=== PATIENT | female | born 1985 | race African-American/Black ===

== ENCOUNTER 2017-02-10 07:14 | Emergency (ER) | payer MEDICAID ==
[2017-02-10] MEDS ORDERED: METHYLPREDNISOLONE INJ 125 MG/2 ML SDV IM ONE (07:52)
--- NOTE | 2017-02-10 07:52 | ER Document Report ---
ED Neck/Back Problem - General Mode of Arrival: Ambulatory Information source: Patient TRAVEL OUTSIDE OF THE [place] IN LAST 30 DAYS: No - General Chief Complaint: Back Pain Stated Complaint: BACK PAIN Time Seen by Provider: 02/10/17 07:36 Notes: Patient is a 31-year-old -Citizen Of [place] female with a history of low back pain who presents to the ER today for low back pain, worse on the right side. Patient states that her mood. She denies any recent injury, numbness, tingling , difficulty voiding or having a bowel movement. (ILA GAINES) - Related Data Allergies/Adverse Reactions: No Known Allergies Allergy (Unverified 02/10/17 07:20) Past Medical History - General Information source: Patient - Social History Smoking Status: Unknown if Ever Smoked Family History: Arthritis, CAD, CVA, DM, Hyperlipidemia, Hypertension. denies: COPD, Malignancy, Thyroid Disfunction Patient has suicidal ideation: No Patient has homicidal ideation: No Neurological Medical History: Reports: Hx Migraine Renal/ Medical History: Denies: Hx Peritoneal Dialysis Psychiatric Medical History: Reports: Hx Anxiety Past Surgical History: Reports: Hx Cardiac Surgery - Mitral valve replacement and mitral valve repair then replacement, Hx Section, Hx Gynecologic Surgery - Left oophorectomy due to torsion, Hx Hysterectomy - Immunizations Hx Diphtheria, Pertussis, Tetanus Vaccination: No Review of Systems - Review of Systems Constitutional: No symptoms reported EENT: No symptoms reported Cardiovascular: No symptoms reported Respiratory: No symptoms reported Gastrointestinal: No symptoms reported Genitourinary: No symptoms reported Female Genitourinary: No symptoms reported Musculoskeletal: See HPI Skin: No symptoms reported Hematologic/Lymphatic: No symptoms reported Neurological/Psychological: No symptoms reported Physical Exam - Vital signs Vitals: Temp Pulse Resp BP Pulse Ox 97.9 F 113 H 16 130/94 H 99 02/10/17 07:18 02/10/17 07:18 02/10/17 07:18 02/10/17 07:18 02/10/17 07:18 - Notes Notes: PHYSICAL EXAMINATION: GENERAL: uncomfortable, in position, but in no acute distress. HEAD: Atraumatic, normocephalic. EYES: Pupils equal round and reactive to light, extraocular movements intact, sclera anicteric, conjunctiva are normal. NECK: Normal range of motion, supple without lymphadenopathy LUNGS: CTAB and equal. No wheezes rales or rhonchi. HEART: Regular rate and rhythm without murmurs ABDOMEN: Soft, no tenderness. No guarding, no rebound BACK: thoracic and lumbar vertebral tenderness, limited ROM , spasm felt in right lumbar area GI/: no CVA tenderness EXTREMITIES: Normal range of motion, no pitting edema. No cyanosis. NEUROLOGICAL: Cranial nerves grossly intact. Normal sensory/motor exams. PSYCH: Normal mood, normal affect. SKIN: Warm, Dry, normal turgor, no rashes or lesions noted (ILA GAINES) Course - Re-evaluation Re-evalutation: 02/10/17 09:13 That x-rays, even a CAT scan of her back for the same back pain. She states it comes and goes and she thinks it is because she is "large chested." (ILA GAINES) - Vital Signs Vital signs: Temp Pulse Resp BP Pulse Ox 98.4 F 99 16 124/85 100 02/10/17 09:36 02/10/17 09:36 02/10/17 07:18 02/10/17 09:36 02/10/17 09:36 Discharge - Discharge Clinical Impression: Low back pain Qualifiers: Chronicity: acute Back pain laterality: right Sciatica presence: without sciatica Qualified Code(s): M54.5 - Low back pain Condition: Stable Disposition: HOME, SELF-CARE Instructions: Warm Packs ([facility]), Ice Packs ([facility]), Low Back Pain ([facility]), Oral Narcotic Medication ([facility]) Additional Instructions: Return immediately for any new or worsening symptoms. Follow up with primary care provider, call tomorrow to make followup appointment. Prescriptions: Cyclobenzaprine HCl [Flexeril 10 mg Tablet] 10 mg PO TIDP PRN #15 tab PRN Reason: Oxycodone HCl/Acetaminophen [Percocet 5-325 mg Tablet] 1 tab PO ASDIR PRN #10 tab PRN Reason: Prednisone 60 mg PO DAILY #15 tablet
[2017-02-10] MEDS ORDERED: CYCLOBENZAPRINE HCL 10 MG TABLET PO ONE (07:53)
[2017-02-10] MEDS ORDERED: OXYCODONE-ACETAMINOPHEN 5-325 MG TABLET PO ONE (07:53)
[2017-02-10] MEDS ORDERED: IBUPROFEN 800 MG TABLET PO ONE (08:27)
[2017-02-10] MEDS ORDERED: HYDROCODONE/ACETAMINOPHEN 5-325 MG 6 TAB/DSPK PO PRN (09:17)
[2017-02-10 10:07] VITALS: BP 124/85
== END 2017-02-10 09:59 | disposition home or self-care (01) ==
LOC: ER 07:14
DX: M54.5 Low back pain (principal); M54.9 Dorsalgia, unspecified
CPT/HCPCS: 99283; 96374; J2930

== ENCOUNTER 2017-03-10 00:36 | Emergency (ER) | payer MEDICAID ==
--- NOTE | 2017-03-10 03:37 | ER Document Report ---
ED General - General Chief Complaint: Dizziness, not sleeping Stated Complaint: PREVIOUS ALTERED STATE OF CONCIOUSNESS Time Seen by Provider: 03/10/17 03:17 Notes: Patient is a 31-year-old female comes emergency department for chief complaint of an episode last Thursday where she felt like she could not speak what she wanted to say, her words were garbled, she felt suddenly tingling in all her extremities, and she felt lightheaded with blurry vision. She states this lasted for about 15 minutes. She admits she had not slept for about 48 hours when the episode occurred. She denies any current deficits, she denies any other symptoms. 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 She states she was previously under the care of cardiology Dr. Miller on Coumadin 6 mg daily, she states that she was discharged from the service for bills that she could not pay, she was then seen by Dr. Squires and discharged for missing appointments. She was most recently seen at [facility] and was referred to [facility] for management after she got a script for 1 mg of coumadin daily. She is now out of coumadin. She currently has no insurance, states she lost her job 3 weeks ago. TRAVEL OUTSIDE OF THE [place] IN LAST 30 DAYS: No - Related Data Allergies/Adverse Reactions: No Known Allergies Allergy (Unverified 02/10/17 07:20) Past Medical History - General Information source: Patient - Social History Smoking Status: Never Smoker Lives with: Friend Family History: Arthritis, CAD, CVA, DM, Hyperlipidemia, Hypertension. denies: COPD, Malignancy, Thyroid Disfunction - Past Medical History Cardiac Medical History: Reports: Other - Mitral regurg Neurological Medical History: Reports: Hx Migraine Renal/ Medical History: Denies: Hx Peritoneal Dialysis Psychiatric Medical History: Reports: Hx Anxiety Past Surgical History: Reports: Hx Cardiac Surgery - Mitral valve replacement and mitral valve repair then replacement, Hx Section, Hx Gynecologic Surgery - Left oophorectomy due to torsion, Hx Hysterectomy - Immunizations Hx Diphtheria, Pertussis, Tetanus Vaccination: No Review of Systems - Review of Systems Constitutional: No symptoms reported EENT: No symptoms reported Cardiovascular: See HPI Respiratory: No symptoms reported Gastrointestinal: No symptoms reported Genitourinary: No symptoms reported Female Genitourinary: No symptoms reported Musculoskeletal: No symptoms reported Skin: No symptoms reported Hematologic/Lymphatic: No symptoms reported Neurological/Psychological: See HPI Physical Exam - Vital signs Vitals: Temp Pulse Resp BP Pulse Ox 98.1 F 95 17 133/84 H 99 03/10/17 00:56 03/10/17 00:56 03/10/17 00:56 03/10/17 00:56 03/10/17 00:56 Interpretation: Normal - General General appearance: Appears well, Alert - HEENT Head: Normocephalic, Atraumatic Eyes: Normal Pupils: PERRL - Respiratory Respiratory status: No respiratory distress Chest status: Nontender Breath sounds: Normal Chest palpation: Normal - Cardiovascular Rhythm: Regular. No: Tachycardia Heart sounds: Normal auscultation, S1 appreciated, S2 appreciated Murmur: No - Abdominal Inspection: Normal Distension: No distension Bowel sounds: Normal Tenderness: Nontender Organomegaly: No organomegaly - Back Back: Normal, Nontender - Extremities General upper extremity: Normal inspection, Nontender, Normal color, Normal ROM , Normal temperature General lower extremity: Normal inspection, Nontender, Normal color, Normal ROM , Normal temperature, Normal weight bearing. No: Maurice's sign - Neurological Neuro grossly intact: Yes Cognition: Normal Orientation: AAOx4 [place] Coma Scale Eye Opening: Spontaneous [place] Coma Scale Verbal: Oriented [place] Coma Scale Motor: Obeys Commands [place] Coma Scale Total: 15 Speech: Normal Motor strength normal: LUE, RUE, LLE, RLE Sensory: Normal - Psychological Associated symptoms: Normal affect, Normal mood - Skin Skin Temperature: Warm Skin Moisture: Dry Skin Color: Normal Course - Re-evaluation Re-evalutation: Patient narrative is not consistent with a TIA, most likely because of her 48 hours of no sleep. Complaining of bilateral numbness, feeling like she was going to pass out, blurring of vision, intermittent confusion with resolution. Regardless I am concerned because of patient's lack of coagulation, lack of insurance, lack of job, sporadic follow-up. Concern for anticoagulation needed to reduce stroke risk. Spoke with Dr. Blum. Patient needs to be back on Coumadin, patient needs resources. Patient with no current symptoms, no concerning findings. She is not a diabetic. INR is definitely below desired level. Admission will leave patient in the same situation. Patient states understanding of her situation. I am prescribing her Coumadin, patient states she will be able to get these filled, she states that she will try to follow-up with primary care but she might need assistance. I placed a call to the [employer], she states I should place a consult. Will let oncoming person know in the AM. Patient states satisfaction, states she will coordinate with them. Discussed return precautions. - Vital Signs Vital signs: Temp Pulse Resp BP Pulse Ox 98.0 F 92 18 136/91 H 100 03/10/17 06:10 03/10/17 06:10 03/10/17 06:10 03/10/17 06:10 03/10/17 06:10 - Laboratory Result Diagrams: 03/10/17 04:29 Laboratory results interpreted by me: 03/10/17 04:29 Sodium 136.6 L Discharge - Discharge Clinical Impression: Subtherapeutic anticoagulation Condition: Stable Disposition: HOME, SELF-CARE Additional Instructions: Fill and take the Coumadin prescription. Follow-up with either [facility] as referred or with 1 of the referrals placed here. We have a home health care case manager consult placed, you will be contacted most likely later today to help work your situation out. Return to emergency department for any concerning symptoms. Prescriptions: Warfarin Sodium [Coumadin 1 mg Tablet] 1 mg PO QHS #30 tablet Warfarin Sodium [Coumadin 5 mg Tablet] 5 mg PO QHS #30 tablet Referrals: [facility] [Provider Group] - Follow up as needed [facility] [Provider Group] - Follow up as needed
[2017-03-10 04:49] LABS: PROTHROMBIN TIME 14.2 SEC (11.4-15.4)
[2017-03-10 04:57] LABS: ANION GAP 7 (5-19); BLOOD UREA NITROGEN 11 mg/dL (7-20); CALCIUM 8.8 mg/dL (8.4-10.2); CARBON DIOXIDE 26 mmol/L (22-30); CHLORIDE 104 mmol/L (98-107); CREATININE RESULT 0.71 mg/dL (0.52-1.25); GLUCOSE 87 mg/dL (75-110); POTASSIUM 4.2 mmol/L (3.6-5.0); SODIUM 136.6 mmol/L (137-145)
[2017-03-10 06:12] VITALS: BP 136/91
== END 2017-03-10 06:10 | disposition home or self-care (01) ==
LOC: ER 00:36
DX: R79.1 Abnormal coagulation profile (principal); T45.516A Underdosing of anticoagulants, initial encounter; Z91.128 Patient's intentional underdosing of medication regimen for other reason; Z91.14 Patient's other noncompliance with medication regimen; R42 Dizziness and giddiness; R20.0 Anesthesia of skin; H53.8 Other visual disturbances; R41.0 Disorientation, unspecified; Z72.820 Sleep deprivation; Z95.2 Presence of prosthetic heart valve
CPT/HCPCS: 36415; 80048; 85610; 99284

== ENCOUNTER 2017-04-02 21:50 | Emergency (ER) | payer MEDICAID ==
--- NOTE | 2017-04-02 23:05 | ER Document Report ---
ED General Pain - General Mode of Arrival: Ambulatory Information source: Patient TRAVEL OUTSIDE OF THE [place] IN LAST 30 DAYS: No - HPI Onset: Other - Refer to HPI notes Context: Chronic problem Similar symptoms previously: Yes Recently seen / treated by doctor: Yes - General Chief Complaint: Back Pain Stated Complaint: BACK PAIN Time Seen by Provider: 04/02/17 23:26 Notes: Patient is a 31 year old female presenting to the emergency department for back pain. Patient has been evaluated in this ED for back pain previously. Patient states her pain is caused from being "heavy chested." Patient states she tried ice and Tylenol prior to arrival with no relief. Patient states her pain is in her mid to upper back and is shooting throughout. Dariusz was seen on 02/10/2017 and was discharged with Flexeril and Percocet which the patient states she got filled. Patient has a mechanical mitral valve and is taking Coumadin. Patient's PCP is Ant Phillips. (CHANO MARTINES) - Related Data Allergies/Adverse Reactions: No Known Allergies Allergy (Unverified 02/10/17 07:20) Past Medical History - General Information source: Patient - Social History Smoking Status: Never Smoker Cigarette use (# per day): No Chew tobacco use (# tins/day): No Smoking Education Provided: No Frequency of alcohol use: None Drug Abuse: None Family History: Arthritis, CAD, CVA, DM, Hyperlipidemia, Hypertension Patient has suicidal ideation: No Patient has homicidal ideation: No Neurological Medical History: Reports: Hx Migraine Psychiatric Medical History: Reports: Hx Anxiety Past Surgical History: Reports: Hx Cardiac Surgery - Mitral valve replacement and mitral valve repair then replacement, Hx Section, Hx Gynecologic Surgery - Left oophorectomy due to torsion, Hx Hysterectomy - Immunizations Hx Diphtheria, Pertussis, Tetanus Vaccination: No Review of Systems - Review of Systems Constitutional: No symptoms reported EENT: No symptoms reported Cardiovascular: No symptoms reported Respiratory: No symptoms reported Gastrointestinal: No symptoms reported Genitourinary: No symptoms reported Female Genitourinary: No symptoms reported Musculoskeletal: See HPI, Back pain Skin: No symptoms reported Hematologic/Lymphatic: No symptoms reported Neurological/Psychological: No symptoms reported -: Yes All other systems reviewed and negative Physical Exam - Vital signs Interpretation: Normal - Vital signs Vitals: Temp Pulse Resp BP Pulse Ox 98.9 F 107 H 20 131/93 H 99 04/02/17 21:55 04/02/17 21:55 04/02/17 21:55 04/02/17 21:55 04/02/17 21:55 - Notes Notes: GENERAL: Alert, interacts well. No acute distress. HEAD: Normocephalic, atraumatic. EYES: Appear normal. Pupils equal, round, and reactive to light. ENT: Moist mucus membranes, tongue midline. NECK: Full range of motion. Supple. Trachea midline. LUNGS: Clear to auscultation bilaterally, no wheezes, rales, or rhonchi. No respiratory distress. HEART: Regular rate and rhythm. No murmurs, gallops, or rubs. ABDOMEN: Soft, non-tender. Non-distended. Normal bowel sounds. BACK: Mid posterior thoracic musculature tenderness to palpation. Right lumbar musculature tenderness with palpation. No step-offs or deformities. EXTREMITIES: Moves all 4 extremities spontaneously. Normal strength. No edema. NEUROLOGICAL: Alert and oriented x3. Normal speech. No focal neurological deficits. GSC 15. PSYCH: Normal affect, normal mood. SKIN: Warm, dry, normal turgor. No rashes or lesions noted. (CHANO MARTINES) Discharge - Discharge Clinical Impression: Back pain Qualifiers: Back pain location: thoracic back pain Chronicity: acute Back pain laterality: bilateral Qualified Code(s): M54.6 - Pain in thoracic spine Condition: Stable Disposition: HOME, SELF-CARE Additional Instructions: Take the medications as prescribed for your back muscle pain and spasms. Follow-up with your doctor this week to work out a plan for managing this frequently recurring problem. Prescriptions: Cyclobenzaprine HCl [Flexeril 5 mg Tablet] 5 mg PO TID PRN #15 tablet PRN Reason: Hydrocodone/Acetaminophen [Hydrocodon-Acetaminophen 5-325] 1 each PO Q4 PRN #15 tablet PRN Reason: Referrals: NATALIA MIX MD [Primary Care Provider] - Follow up as needed Scribe Attestation: 04/02/17 23:38 I personally performed the services described in the documentation, reviewed and edited the documentation which was dictated to the scribe in my presence, and it accurately records my words and actions. (ANNA QUIROS) Scribe Documentation - Scribe Written by Scribe:: Chano Martines, Scribe 04/03/2017 00:55 acting as scribe for :: Dami
[2017-04-02] MEDS ORDERED: HYDROCODONE/ACETAMINOPHEN 5-325 MG 6 TAB/DSPK PO PRN (23:33)
[2017-04-02 23:50] VITALS: BP 128/82
== END 2017-04-02 23:50 | disposition home or self-care (01) ==
LOC: ER 21:50
DX: M54.6 Pain in thoracic spine (principal); Z95.2 Presence of prosthetic heart valve; Z79.01 Long term (current) use of anticoagulants
CPT/HCPCS: 99283

== ENCOUNTER 2017-05-03 20:58 | Emergency (ER) | payer MEDICAID ==
[2017-05-03] MEDS ORDERED: PREDNISONE 20 MG TABLET PO ONE (22:08)
[2017-05-03] MEDS ORDERED: OXYCODONE HCL IR 5 MG TABLET PO ONE (22:09)
--- NOTE | 2017-05-03 22:20 | ER Document Report ---
ED General - General Chief Complaint: Back Pain Stated Complaint: BACK PAIN Time Seen by Provider: 05/03/17 21:47 Mode of Arrival: Ambulatory Information source: Patient Notes: This is a 31-year-old female who presents to the emergency room with lower back pain and spasms on and off for the past 6 months. She does have a history of mitral valve prolapse and has been on warfarin in the past (she is not on warfarin at this time). She denies fever, chills, nausea vomiting. She denies any IV drug abuse. She denies any history of diabetes. She denies any injury. She denies any urinary retention, saddle anesthesia or weakness to the lower extremities. TRAVEL OUTSIDE OF THE [place] IN LAST 30 DAYS: No - HPI Onset: Last week Onset/Duration: Gradual Severity: Moderate Pain Level: 2 Associated symptoms: denies: Chills, Fever, Shortness of breath Exacerbated by: Movement Relieved by: Remaining still Similar symptoms previously: Yes Recently seen / treated by doctor: No - Related Data Allergies/Adverse Reactions: No Known Allergies Allergy (Unverified 02/10/17 07:20) Past Medical History - General Information source: Patient Last Menstrual Period: hyst - Social History Smoking Status: Never Smoker Cigarette use (# per day): No Chew tobacco use (# tins/day): No Frequency of alcohol use: None Drug Abuse: None Lives with: Family Family History: Arthritis, CAD, CVA, DM, Hyperlipidemia, Hypertension Patient has suicidal ideation: No Patient has homicidal ideation: No - Past Medical History Cardiac Medical History: Reports: Other - Mitral valve prolapse Pulmonary Medical History: Reports: None EENT Medical History: Reports: None Neurological Medical History: Reports: Hx Migraine Endocrine Medical History: Reports: None Renal/ Medical History: Reports: None. Denies: Hx Peritoneal Dialysis Malignancy Medical History: Reports: None Psychiatric Medical History: Reports: Hx Anxiety Past Surgical History: Reports: Hx Cardiac Surgery - Mitral valve replacement and mitral valve repair then replacement, Hx Section, Hx Gynecologic Surgery - Left oophorectomy due to torsion, Hx Hysterectomy - Immunizations Hx Diphtheria, Pertussis, Tetanus Vaccination: No Review of Systems - Review of Systems Constitutional: denies: Chills, Fever EENT: No symptoms reported Cardiovascular: No symptoms reported Respiratory: No symptoms reported Gastrointestinal: No symptoms reported Genitourinary: No symptoms reported Female Genitourinary: No symptoms reported Musculoskeletal: See HPI Skin: No symptoms reported Hematologic/Lymphatic: No symptoms reported Neurological/Psychological: No symptoms reported Physical Exam - Vital signs Notes: Physical exam: GENERAL: 31-year-old female, alert and oriented 3, no acute distress HEAD: Atraumatic, normocephalic. EYES: Pupils equal round and reactive to light, extraocular movements intact, sclera anicteric, conjunctiva are normal. ENT: Moist mucous membranes. NECK: Normal range of motion, supple without lymphadenopathy or JVD. LUNGS: Breath sounds clear to auscultation bilaterally and equal. No wheezes rales or rhonchi. HEART: Regular rate and rhythm without murmurs, rubs or gallops. ABDOMEN: Soft, normoactive bowel sounds. No tenderness to palpation. No guarding, no rebound. No masses appreciated. BACK: No spine tenderness. Patient does have paraspinal lumbar tenderness. She does have spasm in that area. Is no erythema over the skin wall. There is no palpable masses. EXTREMITIES: Normal range of motion, no pitting or edema. No clubbing or cyanosis. NEUROLOGICAL: Cranial nerves II through XII grossly intact. Normal speech, motor 5/5 to the lower extremities, sensory grossly intact, PSYCH: Normal mood, normal affect. SKIN: Warm, Dry, normal turgor, no rashes or lesions noted. Discharge - Discharge Clinical Impression: Acute back pain Condition: Stable Disposition: HOME, SELF-CARE Instructions: Low Back Pain ([facility]), Oral Narcotic Medication ([facility]), Warm Packs ( [facility]) Additional Instructions: Recommendations: Take the Medrol Dosepak as prescribed: This is a steroid which is an anti- inflammatory. Do not take any ibuprofen or Aleve while taking this medicine. Take the Robaxin as prescribed: This is the muscle relaxer. Take the oxycodone as prescribed and needed: This is the narcotic. You can take Tylenol every 4-6 hours. Try heating pads to the low back. Follow-up with your primary care doctor ([facility]: You may require some physical therapy or an outpatient MRI) Return to the emergency room for any weakness to the lower legs, inability to urinate, worsening numbness. The pain medicine you're taking prescribed as a narcotic. There are several important things you should know about this medicine: 1. Taking narcotics for too long can lead to physical and mental dependence. Take this medicine only if really needed and in the lowest quantity to achieve pain relief. 2. Do not drink alcohol while on this medicine. Alcohol interacts with narcotics and the combination can be dangerous. 3. Do not drive or operate machinery while on this medicine. 4. Narcotics do cause constipation, so drink plenty of fluids and daily stool softeners. Prescriptions: Oxycodone HCl 5 mg PO Q6HP PRN #25 tablet PRN Reason: Methocarbamol [Robaxin 500 mg Tablet] 500 mg PO BID #14 tablet Methylprednisolone [Medrol 4 mg Dosepack 21 Tab/Pack] 4 mg PO ASDIR PRN #21 tab.ds.pk PRN Reason:
== END 2017-05-03 22:30 | disposition home or self-care (01) ==
LOC: ER 20:58
DX: M54.9 Dorsalgia, unspecified (principal); M54.5 Low back pain; M62.830 Muscle spasm of back
CPT/HCPCS: 99283; J7512; J3490

== ENCOUNTER 2017-05-21 19:05 | Emergency (ER) | payer MEDICAID ==
[2017-05-21 19:11] VITALS: BP 129/77
--- NOTE | 2017-05-21 20:28 | ER Document Report ---
ED Neck/Back Problem - General Chief Complaint: Back Pain Stated Complaint: BACK PAIN Time Seen by Provider: 05/21/17 20:02 Mode of Arrival: Ambulatory Information source: Patient Notes: 31-year-old female presents to ED for complaint of lower back pain. She states this is been going on for 6 months. She states it has been worse for the last 2 days. She states she was bending over a lot yesterday to clean the refrigerator and the pain got a lot worse. She denies any loss of bowel bladder control, loss of muscle control, loss of saddle anesthesia, no signs or symptoms of cauda equina. Patient was seen in April and given Percocet Robaxin and prednisone. Patient denies any new injuries or falls TRAVEL OUTSIDE OF THE [place] IN LAST 30 DAYS: No - HPI Patient complains to provider of: Lower back Onset: Other - Chronic Onset: Chronic Timing: Still present Quality of pain: Pressure Severity: Moderate Pain Level: 4 Context: Bending Recent injury: No Associated symptoms: Like prior neck/back pain, Lower back pain. denies: Constipation, Fever, Motor loss, Numbness/tingling, Radiation to leg, Sensory loss, Unable to urinate Exacerbated by: Movement of trunk Relieved by: Nothing Similar symptoms previously: Yes Recently seen / treated by doctor: Yes - Related Data Allergies/Adverse Reactions: No Known Allergies Allergy (Verified 05/21/17 19:11) Past Medical History - General Information source: Patient - Social History Smoking Status: Former Smoker Cigarette use (# per day): No Chew tobacco use (# tins/day): No Smoking Education Provided: No Frequency of alcohol use: None Drug Abuse: None Lives with: Family Family History: Arthritis, CAD, CVA, DM, Hyperlipidemia, Hypertension. denies: COPD, Malignancy, Thyroid Disfunction Patient has suicidal ideation: No Patient has homicidal ideation: No - Past Medical History Cardiac Medical History: Reports: Other - Mitral valve prolapse that was repaired and then replaced Pulmonary Medical History: Reports: None EENT Medical History: Reports: None Neurological Medical History: Reports: Hx Migraine Endocrine Medical History: Reports: Hx Hyperthyroidism Renal/ Medical History: Reports: None Malignancy Medical History: Reports: None GI Medical History: Reports: None Musculoskeltal Medical History: Reports Hx Arthritis, Reports Hx Musculoskeletal Deformity Skin Medical History: Reports None Psychiatric Medical History: Reports: Hx Anxiety, Hx Depression Traumatic Medical History: Reports: None Infectious Medical History: Reports: None Past Surgical History: Reports: Hx Cardiac Surgery - Mitral valve replacement and mitral valve repair then replacement, Hx Section, Hx Gynecologic Surgery - Left oophorectomy due to torsion, Hx Hysterectomy - Immunizations Hx Diphtheria, Pertussis, Tetanus Vaccination: No Review of Systems - Review of Systems Constitutional: No symptoms reported EENT: No symptoms reported Cardiovascular: No symptoms reported Respiratory: No symptoms reported Gastrointestinal: No symptoms reported Genitourinary: No symptoms reported Female Genitourinary: No symptoms reported Musculoskeletal: Back pain, Muscle pain, Muscle stiffness Skin: No symptoms reported Hematologic/Lymphatic: No symptoms reported Neurological/Psychological: No symptoms reported -: Yes All other systems reviewed and negative Physical Exam - Vital signs Vitals: Temp Pulse BP Pulse Ox 98.5 F 99 129/77 H 98 05/21/17 19:10 05/21/17 19:10 05/21/17 19:10 05/21/17 19:10 Interpretation: Normal - General General appearance: Appears well, Alert - HEENT Head: Normocephalic, Atraumatic Eyes: Normal Pupils: PERRL - Respiratory Respiratory status: No respiratory distress Chest status: Nontender Breath sounds: Normal Chest palpation: Normal - Cardiovascular Rhythm: Regular Heart sounds: Normal auscultation Murmur: No - Abdominal Inspection: Normal Distension: No distension Bowel sounds: Normal Tenderness: Nontender Organomegaly: No organomegaly - Back Back: Normal, Tender. No: Deformity/step-off, CVA tenderness, Vertebra tenderness, Scars, Scoliosis, Wounds - Extremities General upper extremity: Normal inspection, Nontender, Normal color, Normal ROM , Normal temperature General lower extremity: Normal inspection, Nontender, Normal color, Normal ROM , Normal temperature, Normal weight bearing. No: Maurice's sign - Neurological Neuro grossly intact: Yes Cognition: Normal Orientation: AAOx4 Edmonds Coma Scale Eye Opening: Spontaneous Edmonds Coma Scale Verbal: Oriented Pepe Coma Scale Motor: Obeys Commands Edmonds Coma Scale Total: 15 Speech: Normal Motor strength normal: LUE, RUE, LLE, RLE Sensory: Normal - Psychological Associated symptoms: Normal affect, Normal mood - Skin Skin Temperature: Warm Skin Moisture: Dry Skin Color: Normal Course - Re-evaluation Re-evalutation: 05/21/17 21:06 Chronic back pain with no loss control of bowel bladder, no loss of control of leg muscles, no saddle anesthesia, no loss of sensation, no signs or symptoms of cauda equina, patient is able to walk steady. Patient was just seen in April and given Percocet, Robaxin, and prednisone. Explained to patient that I could not continue to give narcotics for chronic pain. Chronic pain policy discussed with patient. - Vital Signs Vital signs: Temp Pulse Resp BP Pulse Ox 98.5 F 99 129/77 H 98 05/21/17 19:10 05/21/17 19:10 05/21/17 19:10 05/21/17 19:10 Discharge - Discharge Clinical Impression: Chronic low back pain Qualifiers: Back pain laterality: bilateral Sciatica presence: without sciatica Qualified Code(s): M54.5 - Low back pain Condition: Stable Disposition: HOME, SELF-CARE Additional Instructions: LOW BACK PAIN: Three out of every four people will have an episode of disabling back pain during their lifetime. Most commonly the pain is due to straining of the muscles and ligaments in the low back. Usual treatment includes: (1) Rest on a firm surface. Avoid lying on your stomach. (2) Ice pack the painful area. After a few days, gentle heat may be used intermittently to relax the area, or ice packs can be continued. (3) Medication may be needed -- muscle relaxers and antiinflammatory medicines are commonly used. (4) As the back improves, exercises are prescribed to strengthen the back and abdominal muscles. Your doctor will advise you on the proper care for your back at each stage in your recovery. You may be better in a few days -- or healing may take several weeks. If new symptoms of a "herniated disc" (radiation of pain, numbness, or tingling down the back of the leg or weakness in the leg) occur, you should be re-examined. Further testing may be necessary. Acetaminophen Acetaminophen may be taken for pain relief or fever control. It's much safer than aspirin, offering a wider range of "safe" dosages. It is safe during . Some brand names are Tylenol, Panadol, Datril, Anacin 3, Tempra, and Liquiprin. Acetaminophen can be repeated every four hours. The following are maximum recommended dosages: WEIGHT Dose Drops Elixir Chewable( 80mg) (LBS.) drprs=droppers tsp=teaspoon 6 40 mg .4 ml (1/2) 6-11 80 mg .8 ml (full) 1/2 tsp 1 tab 12-16 120 mg 1 1/2 drprs 3/4 tsp 1 1/2 tabs 17-23 160 mg 2 drprs 1 tsp 2 tabs 24-30 240 mg 3 drprs 1 1/2 tsp 3 tabs 30-35 320 mg 2 tsp 4 tabs 36-41 360 mg 2 1/4 tsp 4 1 /2 tabs 42-47 400 mg 2 1/2 tsp 5 tabs 48-53 480 mg 3 tsp 6 tabs 54-59 520 mg 3 1/4 tsp 6 1 /2 tabs 60-64 560 mg 3 1/2 tsp 7 tabs 65-70 600 mg 3 3/4 tsp 7 1 /2 tabs 71-76 640 mg 4 tsp 8 tabs 77-82 720 mg 4 1/2 tsp 9 tabs 83-88 800 mg 5 tsp 10 tabs >89 pounds or adults 650 mg to 900 mg Acetaminophen can be repeated every four hours. Maximum daily dose not to exceed 4000 mg. These maximum recommended dosages are slightly higher than the dosages written on the product container, but these dosages are very safe and well below the toxic dosage for acetaminophen. Chronic Pain Control Stress, inactivity, and depression make pain more severe regardless of the cause of the pain. Stress and poor physical condition can cause pain such as headaches and backache. Relaxation: Rest in a quiet place with your eyes closed for 20 minutes twice daily. Concentrate on a pleasant image, or simply "feel" your breathing. Clear your mind. Stress management: Deal with your "stressors." Either take action, or eliminate the stressor from your life. Don't let things hang over you. Accept those things you can't change. Nutrition: Eat small, balanced meals -- don't skip, don't overeat. Meals should be high-carbohydrate, low-sugar, low-fat. Exercise: Exercise helps painful conditions and eases stress. Get 30 minutes of moderate exercise, five days a week. Do an activity that does not flare your pain. Precautions: Pain which continues to disrupt daily activities, or which changes in nature, requires a medical evaluation. Pain Clinic referral is available. We do not manage chronic pain in the Emergency Department. We will try to appropriately help you through an acute flare of your chronic painful condition , but for on-going chronic pain that does not improve, you will need to see your private doctor or highway painter. We do not provide repeated medication management of chronic painful conditions. If you wish, we can provide the name of local pain management physicians. ICE PACKS: Apply ice packs frequently against the painful area. Many different schedules are recommended, such as "20 minutes on, 20 minutes off" or "one hour ice, two hours rest." If you need to work, you may need to go longer between ice treatments. You should plan to have the area ice packed AT LEAST one fourth of the time. The ice should be applied over the wrap, tape, or splint, or over a layer of cloth -- not directly against the skin. Some ice bags have a built-in cloth and can be put directly on the skin. WARM PACKS: After approximately two days, apply gentle heat (such as a heating pad or hot water bottle) for about 20 to 30 minutes about every two hours -- at least four times daily. Warmth and elevation will help you make a more rapid recovery , and will ease the pain considerably. Do not use HOT heat, and never apply heat for longer than 30 minutes. The continuous heat can invisibly damage skin and muscles -- even when no burn is seen on the surface. Damaged muscles can make you MORE sore. FOLLOW-UP CARE: If you have been referred to a physician for follow-up care, call the physician s office for an appointment as you were instructed or within the next two days. If you experience worsening or a significant change in your symptoms, notify the physician immediately or return to the Emergency Department at any time for re-evaluation. Forms: Elevated Blood Pressure Referrals: NATALIA MIX MD [Primary Care Provider] - Follow up as needed
== END 2017-05-21 20:32 | disposition home or self-care (01) ==
LOC: ER 19:05
DX: M54.5 Low back pain (principal); Z87.891 Personal history of nicotine dependence; Z95.2 Presence of prosthetic heart valve; Z90.710 Acquired absence of both cervix and uterus
CPT/HCPCS: 99283

== ENCOUNTER 2017-12-01 13:41 | Emergency (ER) | payer MEDICAID ==
--- NOTE | 2017-12-01 14:43 | ER Document Report ---
ED Medical Screen (RME) - General Chief Complaint: Chest Pain Stated Complaint: SORE THROAT Time Seen by Provider: 12/01/17 14:35 Notes: RME DISCLOSURE I have seen this patient as part of a Rapid Medical Evaluation and, if applicable, placed any initially appropriate orders. The patient will be seen and fully evaluated, including a full history and physical exam, by a provider ( in Main ED or Fast Track) when a room becomes available. 32-year-old female PMH valve replacement here with complaints of midsternal chest pain ongoing for the past day along with shortness of breath. Chest pain is worse with exertion breathing swallowing and talking. She is used to having frequent chest pain due to her heart valve issues but states that this is very different from her usual. EXAM Minimally tachycardic low 100s TRAVEL OUTSIDE OF THE [place] IN LAST 30 DAYS: No - Related Data Allergies/Adverse Reactions: No Known Allergies Allergy (Verified 12/01/17 13:46) Past Medical History - Social History Chew tobacco use (# tins/day): No Frequency of alcohol use: None Drug Abuse: None Neurological Medical History: Reports: Hx Migraine Endocrine Medical History: Reports: Hx Hyperthyroidism Renal/ Medical History: Denies: Hx Peritoneal Dialysis Musculoskeltal Medical History: Reports Hx Arthritis, Reports Hx Musculoskeletal Deformity Psychiatric Medical History: Reports: Hx Anxiety, Hx Depression Past Surgical History: Reports: Hx Cardiac Surgery - Mitral valve replacement and mitral valve repair then replacement, Hx Section, Hx Gynecologic Surgery - Left oophorectomy due to torsion, Hx Hysterectomy - Immunizations Hx Diphtheria, Pertussis, Tetanus Vaccination: No Physical Exam - Vital signs Vitals: Temp Pulse Resp BP Pulse Ox 98.1 F 104 H 20 128/91 H 100 12/01/17 13:57 12/01/17 13:57 12/01/17 13:57 12/01/17 13:57 12/01/17 13:57 Course - Vital Signs Vital signs: Temp Pulse Resp BP Pulse Ox 98.1 F 104 H 20 128/91 H 100 12/01/17 13:57 12/01/17 13:57 12/01/17 13:57 12/01/17 13:57 12/01/17 13:57
[2017-12-01 16:13] LABS: ABSOLUTE BASOPHILS # (AUTO) 0.1 10^3/uL (0.0-0.2); ABSOLUTE EOSINOPHILS # (AUTO) 0.1 10^3/uL (0.0-0.6); ABSOLUTE LYMPHOCYTES (AUTO) 2.4 10^3/uL (0.5-4.7); ABSOLUTE MONOCYTES (AUTO) 0.8 10^3/uL (0.1-1.4); BASOPHILS % (AUTO) 0.9 % (0-2); EOSINOPHILS % (AUTO) 1.1 % (0-6); HEMATOCRIT 41.3 % (36.0-47.0); HEMOGLOBIN 13.7 g/dL (12.0-15.5); LYMPHOCYTES % (AUTO) 25.4 % (13-45); MEAN CORPUSCULAR HEMOGLOBIN 29.8 pg (27.0-33.4); MEAN CORPUSCULAR HGB CONC 33.2 g/dL (32.0-36.0); MEAN CORPUSCULAR VOLUME 90 fl (80-97); MONOCYTES % (AUTO) 8.9 % (3-13); PLATELET COUNT 373 10^3/uL (150-450); RED CELL DISTRIBUTION WIDTH 14.3 % (11.5-14.0); SEGMENTED NEUTROPHILS % (AUTO) 63.7 % (42-78); TOTAL CELLS COUNTED % (AUTO) 100 %; WHITE BLOOD COUNT 9.4 10^3/uL (4.0-10.5)
[2017-12-01 16:37] LABS: INTERNATIONAL RATION (INR) 2.24; PARTIAL THROMBOPLASTIN TIME 39.3 SEC (23.5-35.8)
[2017-12-01 16:43] LABS: ALANINE AMINOTRANSFERASE 27 U/L (9-52); ALBUMIN 4.5 g/dL (3.5-5.0); ALKALINE PHOSPHATASE 67 U/L (38-126); ANION GAP 10 (5-19); ASPARTATE AMINO TRANSFERASE 49 U/L (14-36); BILIRUBIN,DIRECT 0.5 mg/dL (0.0-0.4); BILIRUBIN,TOTAL 0.5 mg/dL (0.2-1.3); BLOOD UREA NITROGEN 18 mg/dL (7-20); CALCIUM 9.8 mg/dL (8.4-10.2); CARBON DIOXIDE 24 mmol/L (22-30); CHLORIDE 107 mmol/L (98-107); GLUCOSE 91 mg/dL (75-110); POTASSIUM 4.1 mmol/L (3.6-5.0); SODIUM 140.6 mmol/L (137-145); TOTAL PROTEIN 8.3 g/dL (6.3-8.2)
[2017-12-01] MEDS ORDERED: LIDOCAINE 2% VISCOUS SOLN 20 ML UDCUP PO ONE (16:50)
[2017-12-01] MEDS ORDERED: MAG HYDROX/AL HYDROX/SIMETH SUSP 30 ML UDCUP PO ONE (16:50)
[2017-12-01] MEDS ORDERED: METOCLOPRAMIDE HCL ORAL SOLN 10 MG/10 ML UDCUP PO ONE (16:50)
[2017-12-01 16:55] LABS: TROPONIN I 0.028 ng/mL
--- NOTE | 2017-12-01 17:26 | EKG REPORT ---
SEVERITY:- ABNORMAL ECG - SINUS TACHYCARDIA PROBABLE LEFT ATRIAL ABNORMALITY PROBABLE LEFT VENTRICULAR HYPERTROPHY NONSPECIFIC T ABNORMALITIES, INFERIOR LEADS : Confirmed by: Alan Delong MD 01-Dec-2017 17:25:00
--- NOTE | 2017-12-01 17:43 | RADIOLOGY REPORT (SQ) ---
EXAM DESCRIPTION: CTA CHEST COMPLETED DATE/TIME: 12/01/2017 5:13 pm REASON FOR STUDY: CP w breathing and swallowing; PE dissection? COMPARISON: None. TECHNIQUE: CT scan of the chest performed using helical scanning technique with dynamic intravenous contrast injection. Images reviewed with lung, soft tissue and bone windows. Reconstructed coronal and sagittal MPR images reviewed. Additional 3 dimensional post-processing performed to develop Maximal Intensity Projection images (OK P). All images stored on PACS. All CT scanners at this facility use dose modulation, iterative reconstruction, and/or weight based d osing when appropriate to reduce radiation dose to as low as reasonably achievable (ALARA). [facility]: Dose Right [facility]: CareDose [facility]: Dose Right [facility]: Teradose 4D [facility]: [employer] CONTRAST TYPE AND DOSE: contrast/concentration: Isovue 370.00 mg/ml; Total Contrast Delivered: 69.0 ml; Total Saline Delivered: 89.9 ml Contrast bolus optimized for the pulmonary arteries. Not diagnostic for the aorta. RENAL FUNCTION: BUN 18 creatinine 0.73 RADIATION DOSE: CT Rad equipment meets quality standard of care and radiation dose reduction techniq ues were employed. CTDIvol: 15.6 - 24.8 mGy. DLP: 600 mGy-cm. . LIMITATIONS: None. FINDINGS: LUNGS AND PLEURA: No masses, infiltrates, pneumothorax. No pleural effusions, calcificati ons. AORTA AND GREAT VESSELS: No aneurysm. Contrast bolus not optimized for the aorta. HEART: No pericardial effusion. No significant coronary artery calcifications. PULMONARY ARTERIES: No emboli visualized in the main pulmonary arteries or the segmental branches. HILAR AND MEDIASTINAL STRUCTURES: No identified masses or abnormal nodes. HARDWARE: None in the chest. UPPER ABDOMEN: Some small gallstones are present. THYROID AND OTHER SOFT TISSUES: No masses. No adenopathy. BONES: No acute or significant finding. 3D MIPS: Confirm above findings. OTHER: No other significant finding. IMPRESSION: 1. NORMAL CTA OF THE CHEST. NO PULMONARY EMBOLI. 2. CHOLELITHIASIS. COMMENT: Quality ID # [id number]: Final reports with documentation of one or more dose reduction techniques (e.g., Automated exposure control, adjustment of the mA and/or kV according to patient size, use of iterative reconstruction technique) TECHNICAL DOCUMENTATION: JOB ID: [id number] [employer]- All Rights Reserved Reading location - IP/workstation name: [email or web address]
[2017-12-01] MEDS ORDERED: FENTANYL CITRATE INJ/PF 100 MCG/2 ML AMPUL IV ONE (19:11)
--- NOTE | 2017-12-01 19:13 | ER Document Report ---
ED General - General Mode of Arrival: Ambulatory Information source: Patient TRAVEL OUTSIDE OF THE [place] IN LAST 30 DAYS: No <RALF SHAHID - Last Filed: 12/01/17 23:57> <LUKAS COBIAN - Last Filed: 12/02/17 00:14> - General Chief Complaint: Chest Pain Stated Complaint: SORE THROAT Time Seen by Provider: 12/01/17 14:35 Notes: Patient is a 32-year-old female with a history of mechanical mitral valve replacement (2007) presents to the emergency department complaining of chest pain and shortness of breath suddenly onset yesterday. Patient states that the pain is exacerbated with swallowing, talking, movement and being supine. Patient states that she is used to chest pain due to her valve replacement and states she hasn't felt pain like this before. Patient describes the pain as constantly achy and intermittently stabbing. Patient has a family history of GA. Mother of the patient had her first heart attack at 31. (RALF SHAHID) - Related Data Allergies/Adverse Reactions: No Known Allergies Allergy (Verified 12/01/17 13:46) Past Medical History - General Information source: Patient - Social History Smoking Status: Never Smoker Chew tobacco use (# tins/day): No Drug Abuse: None Family History: None - GA, Arthritis, CAD, CVA, DM, Hyperlipidemia, Hypertension Patient has suicidal ideation: No Patient has homicidal ideation: No Neurological Medical History: Reports: Hx Migraine Endocrine Medical History: Reports: Hx Hyperthyroidism Musculoskeltal Medical History: Reports Hx Arthritis, Reports Hx Musculoskeletal Deformity Psychiatric Medical History: Reports: Hx Anxiety, Hx Depression Past Surgical History: Reports: Hx Cardiac Surgery - Mitral valve replacement and mitral valve repair then replacement, Hx Section, Hx Gynecologic Surgery - Left oophorectomy due to torsion, Hx Hysterectomy - Immunizations Hx Diphtheria, Pertussis, Tetanus Vaccination: No <RALF SHAHID - Last Filed: 12/01/17 23:57> Review of Systems - Review of Systems Constitutional: No symptoms reported EENT: No symptoms reported Cardiovascular: See HPI, Chest pain Respiratory: See HPI, Short of breath Gastrointestinal: No symptoms reported Genitourinary: No symptoms reported Female Genitourinary: No symptoms reported Musculoskeletal: No symptoms reported Skin: No symptoms reported Hematologic/Lymphatic: No symptoms reported Neurological/Psychological: No symptoms reported -: Yes All other systems reviewed and negative <RALF SHAHID - Last Filed: 12/01/17 23:57> Physical Exam <RALF SHAHID - Last Filed: 12/01/17 23:57> <LUKAS COBIAN - Last Filed: 12/02/17 00:14> - Vital signs Vitals: Temp Pulse Resp BP Pulse Ox 98.1 F 104 H 20 128/91 H 100 12/01/17 13:57 12/01/17 13:57 12/01/17 13:57 12/01/17 13:57 12/01/17 13:57 - Notes Notes: GENERAL: Alert, interacts well. Appears uncomfortable when supine. HEAD: Normocephalic, atraumatic. EYES: Pupils equal, round, and reactive to light. Extraocular movements intact. ENT: Oral mucosa moist, tongue midline. NECK: Full range of motion. Supple. Trachea midline. LUNGS: Clear to auscultation bilaterally, no wheezes, rales, or rhonchi. No respiratory distress. HEART: Tachycardic. Mechanical click auscultated. No murmurs, gallops or rubs. ABDOMEN: Soft, RUQ tender to palpation. Non-distended. Bowel sounds present in all 4 quadrants. EXTREMITIES: Moves all 4 extremities spontaneously. NEUROLOGICAL: Alert and oriented x3. Normal speech. PSYCH: Normal affect, normal mood. SKIN: Warm, dry, normal turgor. No rashes or lesions noted. (RALF SHAHID) Course - Laboratory Result Diagrams: 12/01/17 15:45 12/01/17 15:45 <RALF SHAHID - Last Filed: 12/01/17 23:57> - Laboratory Result Diagrams: 12/01/17 15:45 12/01/17 15:45 <LUKAS COBIAN - Last Filed: 12/02/17 00:14> - Re-evaluation Re-evalutation: 12/01/17 22:42 CBC unremarkable, CMP unremarkable, cardiac enzymes negative 2, lipase normal at 202, proBNP normal at 73, ESR and CRP normal, CT angiogram of the chest was ordered to rule out pulmonary embolism and it did not show any signs of PE, pneumonia, dissection. There is cholelithiasis, given this finding and ultrasound was ordered and showed gallstones but no other significant findings no evidence of obstruction, infection, no pericholecystic fluid. At present I do not have a cause for this patient's pain. There is no evidence of myocardial infarction and her only risk factors are obesity and maternal heart attack at a young age. Discussed with the patient the importance of following up with her meter tester primary as an outpatient. Discussed with patient importance of returning for vomiting, diarrhea, abdominal pain, fevers, difficulty breathing or any new or concerning symptoms including worsening pain. Patient will be given [place] dispense pack and discharged to home. (LUKAS COBIAN) - Vital Signs Vital signs: Temp Pulse Resp BP Pulse Ox 98.1 F 104 H 15 118/82 99 12/01/17 22:56 12/01/17 13:57 12/01/17 22:56 12/01/17 22:56 12/01/17 22:56 - Laboratory Laboratory results interpreted by me: 12/01/17 12/01/17 12/01/17 15:45 15:45 15:45 RDW 14.3 H PT 26.0 H APTT 39.3 H Direct Bilirubin 0.5 H AST 49 H Total Protein 8.3 H - EKG Interpretation by Me Additional EKG results interpreted by me: 12/01/17 22:44 EKG shows sinus tachycardia rate of 101, T-wave inversions in lead III, normal axis, LVH, no ST segment elevations or depressions, there is rapid R-wave progression per my interpretation. (LUKAS COBIAN) Discharge <RALF SHAHID - Last Filed: 12/01/17 23:57> <LUKAS COBIAN - Last Filed: 12/02/17 00:14> - Discharge Clinical Impression: Chest pain of uncertain etiology Condition: Stable Disposition: HOME, SELF-CARE Additional Instructions: Chest Pain of Unclear Cause The exact cause of your chest pain isn't clear. Fortunately, there is no evidence of a dangerous medical condition. Further testing may be required to find the source of the pain. Most often, we find that this pain is coming from the chest wall -- the muscles or rib joints in the chest. But chest pain can come from the lung and lung lining, the esophagus, the heart valves or heart lining, and even the stomach or gallbladder. Rest. Eat lightly until the pain is gone. We may prescribe medicine for pain and inflammation. You should call the physician immediately if the pain radiates to the shoulder, jaw or arms; if you start to run a fever or develop a cough; or if you develop shortness of breath, or other new or alarming symptoms. Your INR (Coumadin level) was slightly low today 2.24, please check with the meter tester primary to see if he would like it a little bit higher, your CAT scan did not show any signs of a blood clot, her EKG in your blood work did not show any signs of a heart attack. The ultrasound of your gallbladder showed gallstones but no signs of blockage or infection. Referrals: CARLEEN ZAYAS MD [Primary Care Provider] - Follow up in 3-5 days Nevaehibkristel Attestation: 12/02/17 00:14 I personally performed the services described in the documentation, reviewed and edited the documentation which was dictated to the scribe in my presence, and it accurately records my words and actions. (LUKAS COBIAN) Nevaehibe Documentation - Scribe Written by Ivon:: Ivon Farley, 12/01/2017 19:16 acting as scribe for :: Jyoti <RALF SHAHID - Last Filed: 12/01/17 23:57>
[2017-12-01 20:22] LABS: C-REACTIVE PROTEIN 7.1 mg/L (<10.0); LIPASE 202.6 U/L (23-300)
[2017-12-01 20:30] LABS: CREATINE KINASE MB 0.23 ng/mL (<4.55); TROPONIN I 0.028 ng/mL
--- NOTE | 2017-12-01 20:38 | RADIOLOGY REPORT (SQ) ---
EXAM DESCRIPTION: U/S ABDOMEN LIMITED W/O DOP COMPLETED DATE/TIME: 12/01/2017 8:14 pm REASON FOR STUDY: RUQ abd pain COMPARISON: None. TECHNIQUE: Dynamic and static grayscale images acquired of the abdomen and recorded on PACS. Tylero ángel selected color Doppler and spectral images recorded. LIMITATIONS: Limited exam due to the patient's body habitus and overlying bowel gas. FINDINGS: PANCREAS: No masses. Visualized pancreatic duct normal caliber. LIVER: No masses. Echotexture normal. LIVER VASCULATURE: Normal directional flow of the main portal vein and hepatic veins. GALLBLADDER: Gallstone(s). No pericholecystic fluid. No wall thickening. ULTRASOUND-DETECTED ERAZO'S SIGN: Negative. INTRAHEPATIC DUCTS AND COMMON DUCT: CBD and intrahepatic ducts normal caliber. No filling defects. INFERIOR VENA CAVA: Normal flow. AORTA: No aneurysm. RIGHT KIDNEY: Normal size. Normal echogenicity. No solid or suspicious masses. No hydronephrosis. No calcifications. PERITONEAL AND RIGHT PLEURAL SPACE: No ascites or effusions. OTHER: No other significant findings. IMPRESSION: GALLSTONES. NO OTHER SIGNIFICANT FINDINGS. TECHNICAL DOCUMENTATION: JOB ID: [id number]- All Rights Reserved Reading location - IP/workstation name: [email or web address]
[2017-12-01] MEDS ORDERED: OXYCODONE-ACETAMINOPHEN 5-325 MG TABLET PO ONE (22:39)
[2017-12-01] MEDS ORDERED: HYDROCODONE/ACETAMINOPHEN 5-325 MG (6 TAB/ER DISP) PO PRN (22:45)
[2017-12-01 23:02] VITALS: BP 118/82
== END 2017-12-01 23:02 | disposition home or self-care (01) ==
LOC: ER 13:41
DX: R07.9 Chest pain, unspecified (principal); R06.02 Shortness of breath; K80.20 Calculus of gallbladder without cholecystitis without obstruction; R00.0 Tachycardia, unspecified; Z95.2 Presence of prosthetic heart valve; Z82.49 Family history of ischemic heart disease and other diseases of the circulatory system
CPT/HCPCS: 93005; 99285; 96374; 36415; 82553; 82550; 83690; 85025; 85652; 85610; 85730; 86140; 80053; 84484; 83880; 76705; 71275; 93010; J3010; J3490 ×3

== ENCOUNTER 2019-10-04 13:27 | Emergency (ER) | payer SELFPAY ==
--- NOTE | 2019-10-04 15:10 | ER Document Report ---
ED General - General Chief Complaint: Numbness of Arm Stated Complaint: RIGHT KNEE SWELLING/LEG ARM TINGLING Time Seen by Provider: 10/04/19 14:42 Primary Care Provider: MARIA DEL ROSARIO CLEANING PA-C [Primary Care Provider] - Follow up as needed Mode of Arrival: Ambulatory Information source: Patient TRAVEL OUTSIDE OF THE [place] IN LAST 30 DAYS: No - HPI Onset: Other - over the last few days Onset/Duration: Gradual Quality of pain: Sharp Severity: Moderate Pain Level: 3 Associated symptoms: Other - transient right knee swelling Exacerbated by: Walking, Other - flexing of right knee Relieved by: Remaining still Similar symptoms previously: Yes - Patient has had right lateral knee pain before Recently seen / treated by doctor: No Notes: 34 year old female with a history of Mitral Valve Prolapse s/p Mitral Valve Replacement on Coumadin, Hyperthyoridism, Hypertension here for right knee pain for the last several days and off and on numbness in her left arm over the last several weeks. The patient tells me she has been told in the past she has a meniscus injury of her right knee (she says this was told to her at an outside hospital). 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 The patient also has noticed her left arm going numb at times. She says movement of her left arm then makes the numbness and tingling go away. The patient tells me she has not has transient left arm numbness like this in the past. The patient denies chest pain or shortness of breath. - Related Data Allergies/Adverse Reactions: No Known Allergies Allergy (Verified 12/01/17 13:46) Home Medications: Warfarin Past Medical History - Social History Smoking Status: Never Smoker Frequency of alcohol use: None Drug Abuse: None Family History: None - [place], Arthritis, CAD, CVA, DM, Hyperlipidemia, Hypertension Patient has suicidal ideation: No Patient has homicidal ideation: No - Past Medical History Cardiac Medical History: Reports: Other - Mitral Valve Proplapse Neurological Medical History: Reports: Hx Migraine Endocrine Medical History: Reports: Hx Hyperthyroidism Renal/ Medical History: Denies: Hx Peritoneal Dialysis Musculoskeletal Medical History: Reports Hx Arthritis, Reports Hx Musculoskeletal Deformity Psychiatric Medical History: Reports: Hx Anxiety, Hx Depression Past Surgical History: Reports: Hx Cardiac Surgery - Mitral valve replacement and mitral valve repair then replacement, Hx Section, Hx Gynecologic Surgery - Left oophorectomy due to torsion, Hx Hysterectomy - Immunizations Hx Diphtheria, Pertussis, Tetanus Vaccination: No Review of Systems - Review of Systems Constitutional: No symptoms reported EENT: No symptoms reported Cardiovascular: No symptoms reported Respiratory: No symptoms reported Gastrointestinal: No symptoms reported Genitourinary: No symptoms reported Female Genitourinary: No symptoms reported Musculoskeletal: Other - right knee pain (lateral) with swelling that comes and goes. left arm numbness and tingling that comes and goes. Skin: No symptoms reported Hematologic/Lymphatic: No symptoms reported Neurological/Psychological: No symptoms reported, Numbness, Tingling Physical Exam - Vital signs Vitals: Temp Pulse Resp BP Pulse Ox 98.2 F 91 16 124/78 100 10/04/19 14:37 10/04/19 14:37 10/04/19 14:37 10/04/19 14:37 10/04/19 14:37 - Notes Notes: GENERAL: Well-appearing, well-nourished and in no acute distress. HEAD: Atraumatic, normocephalic. EYES: Pupils equal round and reactive to light, extraocular movements intact, sclera anicteric, conjunctiva are normal. ENT: TMs normal, nares patent, oropharynx clear without exudates. Moist mucous membranes. NECK: Normal range of motion, supple without lymphadenopathy or JVD. LUNGS: Breath sounds clear to auscultation bilaterally and equal. No wheezes rales or rhonchi. HEART: Regular rate and rhythm without murmurs, rubs or gallops. ABDOMEN: Soft, nontender, normoactive bowel sounds. No guarding, no rebound. No masses appreciated. EXTREMITIES: Normal range of motion, no pitting or edema. No clubbing or cyanosis. Very mild right lateral knee tenderness to palpation. NEUROLOGICAL: Cranial nerves II through XII grossly intact. Normal speech, normal gait. PSYCH: Normal mood, normal affect. SKIN: Warm, Dry, normal turgor, no rashes or lesions noted. Course - Re-evaluation Re-evalutation: 10/04/19 16:20 The patient is here for right knee pain which she has had before and is happening again. Her Xrays show no acute process. Patient says she has had an MRI at an outside hospital showing a meniscus injury. Patient told to obtain this MRI and to follow up with an Orthopedic Surgeon. Patient has also been having transient left arm numbness. She is very low risk for stroke given her age and the fact she is on coumadin. Patient was told to follow up with her PCP for this and to consider follow up with Neurology if these symptoms persist. - Vital Signs Vital signs: Temp Pulse Resp BP Pulse Ox 98.2 F 91 16 124/78 100 10/04/19 14:37 10/04/19 14:37 10/04/19 14:37 10/04/19 14:37 10/04/19 14:37 Discharge - Discharge Clinical Impression: Paresthesia of arm Knee pain, right Qualifiers: Chronicity: acute Qualified Code(s): M25.561 - Pain in right knee Condition: Stable Disposition: HOME, SELF-CARE Additional Instructions: Use over the counter Tylenol for knee pain along with the prescribed Naproxen. Obtain your outside hospital MRI of your knee which showed the possible meniscus tear and follow up with an Orthopedic Surgeon (Dr. Billingsley). Tell your doctor about your transient left arm numbness you have been having as you may need referral to a Neurologist if these symptoms persist. Prescriptions: Naproxen 500 mg PO BID PRN #14 tablet PRN Reason: Referrals: MARIA DEL ROSARIO CLEANING PA-C [Primary Care Provider] - Follow up as needed STEVE BILLINGSLEY MD [ACTIVE STAFF] - Follow up as needed
--- NOTE | 2019-10-04 15:53 | RADIOLOGY REPORT (SQ) ---
EXAM DESCRIPTION: KNEE RIGHT 4 VIEWS COMPLETED DATE/TIME: 10/04/2019 3:13 pm REASON FOR STUDY: knee pain COMPARISON: None. NUMBER OF VIEWS: Four views. TECHNIQUE: AP, lateral, and both oblique radiographic images acquired of the right knee. LIMITATIONS: None. FINDINGS: MINERALIZATION: Normal. BONES: No acute fracture or dislocation. No worrisome bone lesions. JOINT: No effusion. SOFT TISSUES: No soft tissue swelling. No radio-opaque foreign body. OTHER: No other significant finding. IMPRESSION: NEGATIVE STUDY OF THE RIGHT KNEE. NO RADIOGRAPHIC EVIDENCE OF ACUTE INJURY. TECHNICAL DOCUMENTATION: JOB ID: [id number] [employer]- All Rights Reserved Reading location - IP/workstation name: [email or web address]
[2019-10-04 16:25] VITALS: BP 132/79
== END 2019-10-04 16:35 | disposition home or self-care (01) ==
LOC: ER 13:27
DX: R20.2 Paresthesia of skin (principal); M25.561 Pain in right knee; M79.89 Other specified soft tissue disorders; Z79.01 Long term (current) use of anticoagulants; I34.1 Nonrheumatic mitral (valve) prolapse; Z95.2 Presence of prosthetic heart valve; I10 Essential (primary) hypertension
CPT/HCPCS: 99284

== ENCOUNTER 2019-11-30 13:00 | Emergency (ER) | payer SELFPAY ==
[2019-11-30 13:15] VITALS: BP 134/90
--- NOTE | 2019-11-30 13:24 | ER Document Report ---
HPI - HPI Time Seen by Provider: 11/30/19 13:06 Pain Level: 2 Context: Patient is a 34-year-old female, currently on Coumadin presents emergency department with left arm pain that starts in her left shoulder and radiates down. Patient states that she recently moved and helped her sister move. She has had her pain for the past 3 days. States that it is getting worse and feels that she is having numbness down her left arm. - CONSTITUTIONAL Constitutional: DENIES: Fever, Chills - EENT EENT: DENIES: Sore Throat, Ear Pain, Nasal Drainage-Clear - CARDIOVASCULAR Cardiovascular: DENIES: Chest pain - RESPIRATORY Respiratory: DENIES: Trouble Breathing, Coughing - GASTROINTESTINAL Gastrointestinal: DENIES: Abdominal Pain, Nausea, Patient vomiting - URINARY Urinary: DENIES: Dysuria - REPRODUCTIVE Reproductive: DENIES: : - MUSCULOSKELETAL Musculoskeletal: REPORTS: Extremity pain - left should, Back Pain - Left upper back. DENIES: Neck Pain, Swelling - DERM Skin Color: Normal Skin Problems: None Past Medical History - General Information source: Patient - Social History Smoking Status: Unknown if Ever Smoked Chew tobacco use (# tins/day): No Frequency of alcohol use: None Drug Abuse: None Family History: None - [place], Arthritis, CAD, CVA, DM, Hyperlipidemia, Hypertension Patient has suicidal ideation: No Patient has homicidal ideation: No Neurological Medical History: Reports: Hx Migraine Endocrine Medical History: Reports: Hx Hyperthyroidism Renal/ Medical History: Denies: Hx Peritoneal Dialysis Musculoskeletal Medical History: Reports Hx Arthritis, Reports Hx Musculoskeletal Deformity Psychiatric Medical History: Reports: Hx Anxiety, Hx Depression Past Surgical History: Reports: Hx Cardiac Surgery - Mitral valve replacement and mitral valve repair then replacement, Hx Section, Hx Gynecologic Surgery - Left oophorectomy due to torsion, Hx Hysterectomy - Immunizations Hx Diphtheria, Pertussis, Tetanus Vaccination: No Vertical Provider Document - CONSTITUTIONAL Agree With Documented VS: Yes Exam Limitations: No Limitations General Appearance: No Apparent Distress - INFECTION CONTROL TRAVEL OUTSIDE OF THE [place] IN LAST 30 DAYS: No - HEENT HEENT: Atraumatic, Normocephalic, PERRLA - NECK Neck: Normal Inspection - RESPIRATORY Respiratory: Breath Sounds Normal, No Respiratory Distress - CARDIOVASCULAR Cardiovascular: Regular Rate, Regular Rhythm Pulses: Normal: Radial - MUSCULOSKELETAL/EXTREMETIES Musculoskeletal/Extremeties: FROM, Tender - Left trapezius muscle, No Edema - NEURO Level of Consciousness: Awake, Alert, Appropriate Motor/Sensory: No Motor Deficit, No Sensory Deficit - DERM Integumentary: Warm, Dry, No Rash Course - Re-evaluation Re-evalutation: 11/30/19 13:30 Patient's physical exam is consistent with a trapezius muscle strain. Patient will be given a dose of Decadron here in the emergency department and will be sent home with Robaxin. I have a low suspicion for a subclavian vein occlusion, as the patient is on Coumadin. I have very low suspicion for an acute stroke, as the patient is able to move her extremities with no difficulty. Capillary refill less than 3 seconds. Radial pulses 2+. Patient will be started on Robaxin and I have advised her to go to physical therapy or to do some exercises. She is in agreement with this plan. Follow-up precautions were given. Verbal discharge instructions were given to the patient. They verbalized understanding. They are stable for discharge. - Vital Signs Vital signs: Temp Pulse Resp BP Pulse Ox 98.1 F 97 16 134/90 H 100 11/30/19 13:06 11/30/19 13:06 11/30/19 13:06 11/30/19 13:06 11/30/19 13:06 Discharge - Discharge Clinical Impression: Strain of left trapezius muscle Qualifiers: Encounter type: initial encounter Qualified Code(s): S46.812A - Strain of other muscles, fascia and tendons at shoulder and upper arm level, left arm, initial encounter Condition: Stable Disposition: HOME, SELF-CARE Additional Instructions: You are seen today in the emergency department for left arm numbness. This is due to muscle tension in your left shoulder. Buy [id number] Aspercreme with lidocaine and have that area massaged. See if he can get physical therapy or watch [employer] videos on back exercises. Follow-up with [facility] and see if you can get physical therapy. Take Robaxin as needed. Download the [employer] radha for a discount coupon. Prescriptions: Methocarbamol [Robaxin 500 mg Tablet] 1,000 mg PO BID PRN #30 tablet PRN Reason: Forms: Return to Work Referrals: MARIA DEL ROSARIO CLEANING PA-C [Primary Care Provider] - Follow up as needed [facility] [Provider Group] - Follow up as needed
[2019-11-30] MEDS ORDERED: DEXAMETHASONE SOD PHOS INJ 10 MG/1 ML VIAL IM ONE (13:30)
== END 2019-11-30 13:40 | disposition home or self-care (01) ==
LOC: ER 13:00
DX: S29.012A Strain of muscle and tendon of back wall of thorax, initial encounter (principal); X58.XXXA Exposure to other specified factors, initial encounter; M25.512 Pain in left shoulder; Z95.2 Presence of prosthetic heart valve
CPT/HCPCS: 99283; 96372; J1100

== ENCOUNTER 2019-11-30 14:54 | Emergency (ER) | payer SELFPAY ==
[2019-11-30] MEDS ORDERED: HYDROCODONE/ACETAMINOPHEN 5-325 MG TABLET PO ONE (15:52)
--- NOTE | 2019-11-30 16:21 | ER Document Report ---
HPI - HPI Time Seen by Provider: 11/30/19 14:55 Pain Level: 4 Context: Patient is a 34-year-old female who presents emergency department with a chief complaint of left arm pain. She was seen by myself earlier today. Patient stated to me at that time that she was currently on Coumadin taking it every day. After the patient had left, I reviewed her chart and saw that she had not had her Coumadin filled since August 2019. I called the patient back and she revealed to me that she actually had not been taking her Coumadin. I asked her to come back to the emergency department to be evaluated for DVT. - CARDIOVASCULAR Cardiovascular: DENIES: Chest pain - RESPIRATORY Respiratory: DENIES: Trouble Breathing, Coughing - REPRODUCTIVE Reproductive: DENIES: : - MUSCULOSKELETAL Musculoskeletal: REPORTS: Extremity pain - left shoulder, Neck Pain - left. DENIES: Swelling - DERM Skin Color: Normal Skin Problems: None Past Medical History - General Information source: Patient - Social History Smoking Status: Never Smoker Chew tobacco use (# tins/day): No Frequency of alcohol use: Rare Family History: None - [place], Arthritis, CAD, CVA, DM, Hyperlipidemia, Hypertension Patient has suicidal ideation: No Patient has homicidal ideation: No Neurological Medical History: Reports: Hx Migraine Endocrine Medical History: Reports: Hx Hyperthyroidism Renal/ Medical History: Denies: Hx Peritoneal Dialysis Musculoskeletal Medical History: Reports Hx Arthritis, Reports Hx Musculoskeletal Deformity Psychiatric Medical History: Reports: Hx Anxiety, Hx Depression Past Surgical History: Reports: Hx Cardiac Surgery - Mitral valve replacement and mitral valve repair then replacement, Hx Section, Hx Gynecologic Surgery - Left oophorectomy due to torsion, Hx Hysterectomy - Immunizations Hx Diphtheria, Pertussis, Tetanus Vaccination: No Vertical Provider Document - CONSTITUTIONAL Agree With Documented VS: Yes Exam Limitations: No Limitations General Appearance: No Apparent Distress - INFECTION CONTROL TRAVEL OUTSIDE OF THE [place] IN LAST 30 DAYS: No - HEENT HEENT: Atraumatic, Normocephalic, PERRLA - RESPIRATORY Respiratory: Breath Sounds Normal, No Respiratory Distress - CARDIOVASCULAR Cardiovascular: Regular Rate, Regular Rhythm Pulses: Normal: Radial - MUSCULOSKELETAL/EXTREMETIES Musculoskeletal/Extremeties: FROM, Tender - left shoulder - NEURO Level of Consciousness: Awake, Alert, Appropriate Motor/Sensory: No Motor Deficit, No Sensory Deficit - DERM Integumentary: Warm, Dry, No Rash Course - Re-evaluation Re-evalutation: 11/30/19 17:23 Patient's venous Doppler study is negative for a DVT. I suspect her pain is due to musculoskeletal pain, as her previous visit. I had a lengthy conversation with the patient in regards to her Coumadin. She will be started on her Coumadin. She will follow-up with [facility], as Joe, our case management social worker has followed up with [facility] and have her labs redrawn. Patient is in agreement with this plan. 11/30/19 17:[address] Graham, the hospitalist on at this time. He is recommending the patient be bridged with Lovenox. Patient was advised of this recommendation. Orders for coags placed. I know she is she was not on she is got a genetic disorder 11/30/19 18:08 The patient was discharged by the nurse, but labs were not drawn. I spoke with the primary RN and called the patient. I advised the patient to come back to have her coags drawn. We will wait for her to come back. 11/30/19 20:00 I once again attempted to call the patient to come back, she has not come back to have her labs drawn. I left a message advising the patient to come back and have her coags drawn. - Vital Signs Vital signs: Temp Pulse Resp BP Pulse Ox 98.1 F 70 18 134/90 H 100 11/30/19 14:58 11/30/19 14:58 11/30/19 14:58 11/30/19 14:58 11/30/19 14:58 Discharge - Discharge Clinical Impression: Left arm pain, Mechanical heart valve present Condition: Stable Disposition: HOME, SELF-CARE Additional Instructions: You were seen today in the emergency department for left arm pain. You do not have a blood clot. You are being restarted on your Coumadin. Use Lovenox for 5 days to bridge you to Coumadin. You are taking your Coumadin today. Please follow-up with [facility] tomorrow. Prescriptions: Warfarin Sodium [Coumadin 3 mg Tablet] 6 mg PO DAILY #60 tablet Enoxaparin Sodium [Lovenox Inj 80 mg/0.8 ml Disp.syrin] 75 mg SUBCUT Q12 #10 dis.syr Referrals: [facility] [Provider Group] - Follow up tomorrow
--- NOTE | 2019-11-30 17:08 | RADIOLOGY REPORT (SQ) ---
EXAM DESCRIPTION: VENOUS UNILATERAL UPPER COMPLETED DATE/TIME: 11/30/2019 4:56 pm REASON FOR STUDY: LUE pain; hx mechanical heart valve COMPARISON: None. TECHNIQUE: Dynamic and static toth scale and color images acquired of the left arm venous system. Se lected spectral images acquired with additional compression and augmentation maneuvers. The contralat eral subclavian vein and internal jugular vein were also imaged. Images stored on PACS. LIMITATIONS: None. FINDINGS: INTERNAL JUGULAR VEIN: Normal phasicity. No visualized echogenic material on toth scale. N o defects on color images. Comparison opposite side normal. SUBCLAVIAN VEIN: Normal compression, augmentation. No visualized echogenic material on toth scale. No defects on color images. AXILLARY VEIN: Normal compression, augmentation. No visualized echogenic material on toth scale. No d efects on color images. BRACHIAL VEIN: Normal compression, augmentation. No visualized echogenic material on toth scale. No d efects on color images. BASILIC VEIN: Normal compression, augmentation. No visualized echogenic material on toth scale. No de fects on color images. CEPHALIC VEIN: Normal compression, augmentation. No visualized echogenic material on toth scale. No d efects on color images. OTHER: No other finding. IMPRESSION: NO EVIDENCE DVT OR SVT LEFT ARM. TECHNICAL DOCUMENTATION: JOB ID: [id number] 2010 [employer] All Rights Reserved Reading location - IP/workstation name: [email or web address]
[2019-11-30 17:53] VITALS: BP 138/83
== END 2019-11-30 17:51 | disposition home or self-care (01) ==
LOC: ER 14:54
DX: M79.602 Pain in left arm (principal); M25.512 Pain in left shoulder; M54.2 Cervicalgia; Z95.2 Presence of prosthetic heart valve; T45.516A Underdosing of anticoagulants, initial encounter; Z91.14 Patient's other noncompliance with medication regimen
CPT/HCPCS: 93971; 99283

== ENCOUNTER 2019-12-03 19:54 | Emergency (ER) | payer SELFPAY ==
--- NOTE | 2019-12-03 20:11 | ER Document Report ---
ED Medical Screen (RME) - General Stated Complaint: LEFT ARM PAIN Primary Care Provider: MARIA DEL ROSARIO CLEANING PA-C [Primary Care Provider] - Follow up as needed Notes: Patient is a 34-year-old female with a history of mechanical heart valve on Coumadin who presents to the emergency department with chief complaint of left arm pain. She was seen here twice 3 days ago for the same complaint. She was reportedly helping her sister move and afterwards began having pain in the left arm and trapezius. She was subsequently ruled out for DVT with a sonogram of the left arm. She was not taking her Coumadin at that time as prescribed. She was reinitiated on Coumadin and bridged with Lovenox. She has not had an INR checked since that time. She returns today in relation to needing an INR and also ongoing discomfort in the left arm despite steroid shot and Robaxin. No n ew fall, injury or trauma. I have treated and performed a rapid initial assessment of this patient. A comprehensive ED assessment and evaluation of the patient, analysis of test results and completion of medical decision making process will be conducted by additional ED providers. PHYSICAL EXAMINATION: GENERAL: Well-appearing, well-nourished and in no acute distress. A&Ox4. Answers questions appropriately. TRAVEL OUTSIDE OF THE [place] IN LAST 30 DAYS: No - Related Data Allergies/Adverse Reactions: No Known Allergies Allergy (Verified 11/30/19 13:07) Past Medical History Neurological Medical History: Reports: Hx Migraine Endocrine Medical History: Reports: Hx Hyperthyroidism Renal/ Medical History: Denies: Hx Peritoneal Dialysis Musculoskeltal Medical History: Reports Hx Arthritis, Reports Hx Musculoskeletal Deformity Psychiatric Medical History: Reports: Hx Anxiety, Hx Depression Past Surgical History: Reports: Hx Cardiac Surgery - Mitral valve replacement and mitral valve repair then replacement, Hx Section, Hx Gynecologic Surgery - Left oophorectomy due to torsion, Hx Hysterectomy - Immunizations Hx Diphtheria, Pertussis, Tetanus Vaccination: No Physical Exam - Vital signs Vitals: Temp Pulse Resp BP Pulse Ox 97.7 F 102 H 18 127/86 H 97 12/03/19 20:05 12/03/19 20:05 12/03/19 20:05 12/03/19 20:05 12/03/19 20:05 Course - Vital Signs Vital signs: Temp Pulse Resp BP Pulse Ox 97.7 F 102 H 18 127/86 H 97 12/03/19 20:05 12/03/19 20:05 12/03/19 20:05 12/03/19 20:05 12/03/19 20:05 Doctor's Discharge - Discharge Referrals: MARIA DEL ROSARIO CLEANING PA-C [Primary Care Provider] - Follow up as needed
[2019-12-03 20:40] LABS: ABSOLUTE BASOPHILS # (AUTO) 0.1 10^3/uL (0.0-0.2); ABSOLUTE EOSINOPHILS # (AUTO) 0.1 10^3/uL (0.0-0.6); ABSOLUTE LYMPHOCYTES (AUTO) 3.3 10^3/uL (0.5-4.7); ABSOLUTE MONOCYTES (AUTO) 0.6 10^3/uL (0.1-1.4); ABSOLUTE NEUT (AUTO) 2.9 10^3/uL (1.7-8.2); BASOPHILS % (AUTO) 0.9 % (0-2); EOSINOPHILS % (AUTO) 1.6 % (0-6); HEMATOCRIT 39.1 % (36.0-47.0); HEMOGLOBIN 13.2 g/dL (12.0-15.5); LYMPHOCYTES % (AUTO) 46.9 % (13-45); MEAN CORPUSCULAR HEMOGLOBIN 29.6 pg (27.0-33.4); MEAN CORPUSCULAR HGB CONC 33.7 g/dL (32.0-36.0); MEAN CORPUSCULAR VOLUME 88 fl (80-97); MONOCYTES % (AUTO) 8.5 % (3-13); PLATELET COUNT 388 10^3/uL (150-450); RED BLOOD COUNT 4.46 10^6/uL (3.72-5.28); RED CELL DISTRIBUTION WIDTH 14.6 % (11.5-14.0); SEGMENTED NEUTROPHILS % (AUTO) 42.1 % (42-78); TOTAL CELLS COUNTED % (AUTO) 100 %; WHITE BLOOD COUNT 6.9 10^3/uL (4.0-10.5)
[2019-12-03 20:43] LABS: INTERNATIONAL RATION (INR) 1.59; PROTHROMBIN TIME 19.1 SEC (11.4-15.4)
[2019-12-03 20:56] LABS: ANION GAP 7 (5-19); BLOOD UREA NITROGEN 10 mg/dL (7-20); CALCIUM 8.9 mg/dL (8.4-10.2); CARBON DIOXIDE 28 mmol/L (22-30); CHLORIDE 100 mmol/L (98-107); GLUCOSE 113 mg/dL (75-110)
[2019-12-03] MEDS ORDERED: OXYCODONE-ACETAMINOPHEN 5-325 MG TABLET PO ONE (22:16)
--- NOTE | 2019-12-03 22:35 | ER Document Report ---
ED General - General Chief Complaint: Arm Pain Stated Complaint: LEFT ARM PAIN Time Seen by Provider: 12/03/19 21:22 Primary Care Provider: MARIA DEL ROSARIO CLEANING PA-C [Primary Care Provider] - Follow up as needed TRAVEL OUTSIDE OF THE [place] IN LAST 30 DAYS: No - HPI Notes: Patient is a 34-year-old female with a history of mitral valve replacement, currently anticoagulated on Coumadin, who presents emergency department for evaluation of left arm pain. She states that she started about a week ago with pain in her upper back. It progressed into her shoulder blades. It got worse in the left side, and then became significant in her left arm. She states she has some numbness and tingling in her left hand. She was actually seen here in the emergency department on November 29. Examination then was determined to be unremarkable, she was diagnosed with a "pinched nerve" and sent home. It was then noted that she was not on her Coumadin at that time, was brought back into the ER no blood clot was ruled out. She was restarted on Coumadin with bridging Lovenox. She is been taking her Coumadin again. She states that her pain is still not better. She been treated with a "steroid shot" and some Robaxin and states that they have offered no relief. - Related Data Allergies/Adverse Reactions: No Known Allergies Allergy (Verified 11/30/19 13:07) Home Medications: warfarin Past Medical History - General Information source: Patient - Social History Smoking Status: Never Smoker Chew tobacco use (# tins/day): No Frequency of alcohol use: None Drug Abuse: None Family History: None - [place], Arthritis, CAD, CVA, DM, Hyperlipidemia, Hypertension Patient has suicidal ideation: No Patient has homicidal ideation: No - Past Medical History Cardiac Medical History: Reports: Other - Mitral valve prolapse with replacement Neurological Medical History: Reports: Hx Migraine Endocrine Medical History: Reports: Hx Hyperthyroidism Renal/ Medical History: Denies: Hx Peritoneal Dialysis Musculoskeletal Medical History: Reports Hx Arthritis, Reports Hx Musculoskeletal Deformity Psychiatric Medical History: Reports: Hx Anxiety, Hx Depression Past Surgical History: Reports: Hx Cardiac Surgery - Mitral valve replacement and mitral valve repair then replacement, Hx Section, Hx Gynecologic Surgery - Left oophorectomy due to torsion, Hx Hysterectomy - Immunizations Hx Diphtheria, Pertussis, Tetanus Vaccination: No Review of Systems - Review of Systems Musculoskeletal: See HPI Neurological/Psychological: See HPI -: Yes All other systems reviewed and negative Physical Exam - Vital signs Vitals: Temp Pulse Resp BP Pulse Ox 97.7 F 102 H 18 127/86 H 97 12/03/19 20:05 12/03/19 20:05 12/03/19 20:05 12/03/19 20:05 12/03/19 20:05 - Notes Notes: This is a 34-year-old female who appears her stated age in no acute distress. Head is normocephalic and atraumatic, pupils are equal round, reactive to light. Oral mucosa is moist. Heart regular rate and rhythm, lungs are clear to station bilaterally. Examination of the left upper extremity is no obvious deformity. She has no midline tenderness or step-off of the spine, paraspinal musculature tenderness noted throughout the cervical spine with associated spasm. She is markedly tender to palpation over the first rib and the entire body of the trapezius. She has full range of motion of the shoulder, elbow, wrist, fingers, thumb. She is +5 or 5 strength at all of these joints as well, full sensation. Brachioradialis and biceps reflexes are 2+. Radial pulses 2+, sensation is intact, capillary fill is brisk. Course - Re-evaluation Re-evalutation: 12/03/19 22:33 Patient presents to the emergency department for evaluation. She had laboratory investigations as ordered through triage. Her INR was found to be subtherapeutic. This was communicated to the patient, but she needs to continue to take her Coumadin as prescribed. She voiced understanding to this. I do not have a strong suspicion for a cervical radiculopathy at this time in this patient. Her sensation is intact to her entire left upper extremity, reflexes and strength are good. I do suspect this is all secondary to muscle spasm. I will put her on a prolonged dose of steroids, she will be treated with a Medrol Dosepak. Unfortunately NSAIDs are contraindicated in this anticoagulated patient. Also will send her with Flexeril instead of Robaxin to see if that helps. She is told moist heat and gentle stretching to the area. She is notified that she may need further testing or imaging should her symptoms persist. She voiced understanding. She is to return to the ED with worsening or new concerning symptoms of any sort. - Vital Signs Vital signs: Temp Pulse Resp BP Pulse Ox 97.7 F 102 H 18 127/86 H 97 12/03/19 20:05 12/03/19 20:05 12/03/19 20:05 12/03/19 20:05 12/03/19 20:05 - Laboratory Result Diagrams: 12/03/19 20:20 12/03/19 20:20 Laboratory results interpreted by me: 12/03/19 12/03/19 12/03/19 20:20 20:20 20:20 RDW 14.6 H Lymph % (Auto) 46.9 H PT 19.1 H Sodium 134.7 L Glucose 113 H Discharge - Discharge Clinical Impression: Left arm pain, Subtherapeutic international normalized ratio (INR) Strain of left trapezius muscle Qualifiers: Encounter type: subsequent encounter Qualified Code(s): S46.812D - Strain of other muscles, fascia and tendons at shoulder and upper arm level, left arm, subsequent encounter Condition: Stable Disposition: HOME, SELF-CARE Instructions: Arm Pain, Nonspecific ([facility]) Additional Instructions: Take Medrol Dosepak as directed until gone. Take Flexeril, replacing the Robaxin, for muscle tension. Please watch for dizziness and drowsiness with this medication. Gentle stretching, moist heat to the painful areas. Follow-up with primary care next week. You may need further imaging modalities if your symptoms persist. Return to the ER with worsening or concerning symptoms of any sort. Referrals: MARIA DEL ROSARIO CLEANING PA-C [Primary Care Provider] - Follow up as needed
[2019-12-03 23:04] VITALS: BP 129/89
== END 2019-12-03 23:04 | disposition home or self-care (01) ==
LOC: ER 19:54
DX: S46.812D Strain of other muscles, fascia and tendons at shoulder and upper arm level, left arm, subsequent encounter (principal); M79.602 Pain in left arm; R79.1 Abnormal coagulation profile; M54.6 Pain in thoracic spine; R20.0 Anesthesia of skin; X58.XXXD Exposure to other specified factors, subsequent encounter; Z79.01 Long term (current) use of anticoagulants; Z95.2 Presence of prosthetic heart valve
CPT/HCPCS: 36415; 80048; 85025; 85610; 99283

== ENCOUNTER 2020-04-04 08:09 | Emergency (ER) | payer SELFPAY ==
--- NOTE | 2020-04-04 10:38 | ER Document Report ---
ED ENT - General Chief Complaint: Ear Pain Stated Complaint: RIGHT EAR PAIN Time Seen by Provider: 04/04/20 10:10 Primary Care Provider: MARIA DEL ROSARIO CLEANING PA-C [Primary Care Provider] - Follow up as needed Mode of Arrival: Ambulatory Information source: Patient TRAVEL OUTSIDE OF THE [place] IN LAST 30 DAYS: No - HPI Notes: Patient presents with right ear pain for 2 days. It is sharp and severe. It is constant. Is worse with touch and better if left alone. She denies any type of swimming or water exposure other than normal walking. She denies any previous history of similar symptoms. She has had no cough congestion runny nose or fevers. She has no significant comorbidities such as diabetes. - Related Data Allergies/Adverse Reactions: No Known Allergies Allergy (Verified 11/30/19 13:07) Home Medications: warfarin 6mg daily Past Medical History - General Information source: Patient - Social History Smoking Status: Never Smoker Chew tobacco use (# tins/day): No Frequency of alcohol use: None Drug Abuse: None Family History: None - [place], Arthritis, CAD, CVA, DM, Hyperlipidemia, Hypertension Neurological Medical History: Reports: Hx Migraine Endocrine Medical History: Reports: Hx Hyperthyroidism Renal/ Medical History: Denies: Hx Peritoneal Dialysis Musculoskeletal Medical History: Reports Hx Arthritis, Reports Hx Musculoskeletal Deformity Psychiatric Medical History: Reports: Hx Anxiety, Hx Depression Past Surgical History: Reports: Hx Cardiac Surgery - Mitral valve replacement and mitral valve repair then replacement, Hx Section, Hx Gynecologic Surgery - Left oophorectomy due to torsion, Hx Hysterectomy - Immunizations Hx Diphtheria, Pertussis, Tetanus Vaccination: No Review of Systems - Review of Systems Constitutional: denies: Chills, Fever Cardiovascular: denies: Chest pain, Palpitations Respiratory: denies: Cough, Short of breath -: Yes All other systems reviewed and negative Physical Exam - Vital signs Vitals: Temp Pulse Resp BP Pulse Ox 98.7 F 107 H 18 123/78 100 04/04/20 08:13 04/04/20 08:13 04/04/20 08:13 04/04/20 08:13 04/04/20 08:13 Interpretation: Normal - General General appearance: Appears well, Alert - HEENT Head: Normocephalic, Atraumatic Eyes: Normal Pupils: PERRL Ears: Tragus tenderness External canal: Erythema, Swollen Tympanic membrane: Normal. No: Injected, Loss of landmarks - Respiratory Respiratory status: No respiratory distress Chest status: Nontender Breath sounds: Normal Chest palpation: Normal - Cardiovascular Rhythm: Regular - Patient was slightly tachycardic at triage. However her current pulse is 92. Heart sounds: Normal auscultation Murmur: No - Abdominal Inspection: Normal Distension: No distension Bowel sounds: Normal Tenderness: Nontender Organomegaly: No organomegaly - Back Back: Normal, Nontender - Extremities General upper extremity: Normal inspection, Nontender, Normal color, Normal ROM, Normal temperature General lower extremity: Normal inspection, Nontender, Normal color, Normal ROM, Normal temperature, Normal weight bearing. No: Maurice's sign - Neurological Neuro grossly intact: Yes Cognition: Normal Orientation: AAOx4 [place] Coma Scale Eye Opening: Spontaneous [place] Coma Scale Verbal: Oriented [place] Coma Scale Motor: Obeys Commands [place] Coma Scale Total: 15 Speech: Normal Motor strength normal: LUE, RUE, LLE, RLE Sensory: Normal - Psychological Associated symptoms: Normal affect, Normal mood - Skin Skin Temperature: Warm Skin Moisture: Dry Skin Color: Normal Course - Vital Signs Vital signs: Temp Pulse Resp BP Pulse Ox 98.7 F 107 H 18 123/78 100 04/04/20 08:13 04/04/20 08:13 04/04/20 08:13 04/04/20 08:13 04/04/20 08:13 Discharge - Discharge Clinical Impression: Otitis externa Qualifiers: Otitis externa type: swimmer's ear Chronicity: acute Laterality: right Qualified Code(s): H60.331 - Swimmer's ear, right ear Condition: Stable Disposition: HOME, SELF-CARE Instructions: Use of Ear Drops ([facility]), Oral Narcotic Medication ([facility]), Otitis Externa ([facility]) Additional Instructions: Call your family physician as soon as possible to arrange follow-up Prescriptions: Neomy Sulf/Polymyx B Sulf/Hc [Cortisporin Otic Susp] 4 drop AD Q6 7 Days #1 bottle Hydrocodone/Acetaminophen [Rice 5-325 mg Tablet] 1 tab PO Q6 PRN 3 Days #12 tablet PRN Reason: Forms: Return to Work Referrals: MARIA DEL ROSARIO CLEANING PA-C [Primary Care Provider] - Follow up in 3-5 days
[2020-04-04 10:56] VITALS: BP 117/84
== END 2020-04-04 10:58 | disposition home or self-care (01) ==
LOC: ER 08:09
DX: H60.331 Swimmer's ear, right ear (principal); H92.01 Otalgia, right ear; Z79.02 Long term (current) use of antithrombotics/antiplatelets; Z95.4 Presence of other heart-valve replacement
CPT/HCPCS: 99282

== ENCOUNTER 2020-08-15 08:07 | Emergency (ER) | payer SELFPAY ==
[2020-08-15 08:20] VITALS: BP 133/86
--- NOTE | 2020-08-15 08:30 | ER Document Report ---
ED General - General Chief Complaint: Arm Pain Stated Complaint: ARM PAIN Primary Care Provider: MARIA DEL ROSARIO CLEANING PA-C [Primary Care Provider] - Follow up in 1 week Notes: 35-year-old female history of mechanical heart valve noncompliant with Coumadin and multiple visits for left upper extremity pain with rule out DVT and suspected radial apathy presents with the same pain left upper arm worse than its been, had a period where it was better after steroids and now is back again. Radiating down from her shoulder to her fingers and now she feels tingling in the thumb index and middle finger. 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 Mild neck pain nothing severe no headache no fever. No other paresthesias. Never had a clot. Has had a negative DVT scan on the left arm and its not swollen. TRAVEL OUTSIDE OF THE [place] IN LAST 30 DAYS: No - Related Data Allergies/Adverse Reactions: No Known Allergies Allergy (Verified 11/30/19 13:07) Home Medications: warfarin Past Medical History - General Information source: Patient - Social History Smoking Status: Never Smoker Chew tobacco use (# tins/day): No Frequency of alcohol use: None Drug Abuse: None Family History: None - [place], Arthritis, CAD, CVA, DM, Hyperlipidemia, Hypertension Neurological Medical History: Reports: Hx Migraine Endocrine Medical History: Reports: Hx Hyperthyroidism Renal/ Medical History: Denies: Hx Peritoneal Dialysis Musculoskeletal Medical History: Reports Hx Arthritis, Reports Hx Musculoskeletal Deformity Psychiatric Medical History: Reports: Hx Anxiety, Hx Depression Past Surgical History: Reports: Hx Cardiac Surgery - Mitral valve replacement and mitral valve repair then replacement, Hx Section, Hx Gynecologic Surgery - Left oophorectomy due to torsion, Hx Hysterectomy - Immunizations Hx Diphtheria, Pertussis, Tetanus Vaccination: No Review of Systems - Review of Systems Notes: REVIEW OF SYSTEMS GEN: Denies fever, chills, weight loss ENT: Denies sore throat, nasal discharge, ear pain EYES: Denies blurry vision, eye pain, discharge CV: Denies chest pain, palpitations, edema RESP: Denies cough, shortness of breath, wheezing GI: Denies abdominal pain, nausea, vomiting, diarrhea MSK: Shoulder pain arm pain, SKIN: Denies rash, skin lesions LYMPH: Denies swollen glands/lymph nodes NEURO: Finger tingling PSYCH: Denies depression, suicidal or homicidal ideation PHYSICAL EXAMINATION General: No acute distress, well-nourished Head: Atraumatic, normocephalic ENT: Mouth normal, oropharynx moist, no exudates or tonsillar enlargement Eyes: Conjunctiva normal, pupils equal, lids normal Neck: No JVD, supple, no guarding CVS: Murmur consistent with mechanical valve Resp: No resp distress, equal and normal breath sounds bilaterally GI: Nondistended, soft, no tenderness to palpation, no rebound or guarding Ext: No deformities, no edema, normal range of motion in upper and lower ext Back: No CVA or midline TTP Skin: No rash, warm Lymphatic: No lymphadeopathy noted Neuro: Awake, alert. Face symmetric. GCS 15. Sensation and ruby rails developer strength in left upper extremity. No edema noted. 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 They verbalized understanding of this. Please note that clinical decision making for this patient was made during the 2019 pandemic of novel coronavirus which caused a significant strain on the healthcare system including at this particular facility. Criteria for admission, discharge and level of care decisions as well as treatment decisions have necessarily changed. - Vital Signs Vital signs: Temp Pulse Resp BP Pulse Ox 97.9 F 88 16 133/86 H 100 08/15/20 08:11 08/15/20 08:11 08/15/20 08:11 08/15/20 08:11 08/15/20 08:11 - Laboratory Results Critical Laboratory Results Reviewed: No Critical Results - Radiology Results Critical Radiology Results Reviewed: No Critical Results Discharge - Discharge Clinical Impression: Cervical radiculopathy at C6, Noncompliance w/medication treatment due to intermit use of medication Condition: Good Disposition: HOME, SELF-CARE Instructions: Coumadin (warfarin) ([facility]), Radiculopathy ([facility]) Additional Instructions: As we discussed is very important for you to be on your Coumadin so we have restarted this dose Your arm pain is probably unrelated and is related to a pinched nerve. Message to primary care Please check INR and adjust Coumadin dose appropriately I have started her on her baseline 6 per night dosage Please also refer for MRI cervical spine Prescriptions: Warfarin Sodium [Coumadin] 6 mg PO DAILY #30 tablet Gabapentin 300 mg PO TID #90 capsule Referrals: MARIA DEL ROSARIO CLEANING PA-C [Primary Care Provider] - Follow up in 1 week
== END 2020-08-15 09:15 | disposition home or self-care (01) ==
LOC: ER 08:07
DX: M54.12 Radiculopathy, cervical region (principal); M79.602 Pain in left arm; M25.512 Pain in left shoulder; Z91.14 Patient's other noncompliance with medication regimen; Z79.01 Long term (current) use of anticoagulants; Z95.2 Presence of prosthetic heart valve
CPT/HCPCS: 99283